=== PATIENT | female | born 1990 | race Two or more races ===

== ENCOUNTER 2023-02-27 08:00 | Outpatient (CLI) | payer OTHER, SELFPAY | END 2023-02-27 08:01 | disposition home or self-care (01) | LOC: NFLDREF 03-01 18:12 | PROVIDERS: Visit Provider Advanced Practice Midwife | DX: O20.9 Hemorrhage in early pregnancy, unspecified (principal) | CPT/HCPCS: 84702 ==

== ENCOUNTER 2023-03-06 08:28 | Outpatient (CLI) | payer OTHER, SELFPAY | END 2023-03-06 08:29 | disposition home or self-care (01) | LOC: NFLDREF 03-09 08:43 | PROVIDERS: Visit Provider Obstetrics & Gynecology | DX: O03.9 Complete or unspecified spontaneous abortion without complication (principal) | CPT/HCPCS: 84702 ==

== ENCOUNTER 2023-03-23 10:28 | Outpatient (CLI) | payer OTHER, SELFPAY | END 2023-03-23 10:29 | disposition home or self-care (01) | LOC: NFLDREF 15:24 | PROVIDERS: Visit Provider Obstetrics & Gynecology | DX: O20.9 Hemorrhage in early pregnancy, unspecified (principal) | CPT/HCPCS: 84702 ==

== ENCOUNTER 2024-07-26 06:55 | Outpatient (CLI) | payer OTHER, SELFPAY ==
--- NOTE | 2024-07-26 07:15 | CRLHL7_ITS ---
For Patients: As a result of the Cures Act, medical imaging exams and procedure reports are released immediately into your electronic medical record. You may view this report before your referring provider. If you have questions, please contact your health care provider. HISTORY: Dating and viability COMPARISON: None available of this gestation. TECHNIQUE: Transvaginal ultrasound examination of the early was performed. FINDINGS: A single intrauterine gestational sac is seen with a pole. The crown-rump length measurement of 3.5 cm gives an estimated gestational age of 10 weeks 3 days with an estimated date of delivery of 02/18/2025. This correlates well with the LMP of 05/18/2024 which gives a clinical age of 9 weeks 6 days. Regular cardiac activity is seen at 159 BPM. There is no sign of free fluid in the pelvis. The ovaries are normal in appearance. IMPRESSION: Single intrauterine gestation with estimated age of 10 weeks 3 days. Regular cardiac activity is seen. Dictated by Zheng Caraballo MD @ 07/26/2024 10:47:58 AM (Electronically Signed)
== END 2024-07-26 06:56 | disposition home or self-care (01) ==
PROVIDERS: Visit Provider Physician Assistant
DX: Z34.91 Encounter for supervision of normal pregnancy, unspecified, first trimester (principal); Z3A.10 10 weeks gestation of pregnancy
CPT/HCPCS: 76817; 86703; 86706; 86803; 86850; 86900; 86901; 87086; 87340; 87491; 87591; 87624; 88142

== ENCOUNTER 2024-07-26 08:15 | Outpatient (CLI) | payer OTHER, SELFPAY ==
[2024-07-26 12:51] LABS: Chlamydia DNA Amplified* NOT DETECTED (No Detected); GC DNA Amplified* NOT DETECTED (No Detected)
[2024-07-30 06:10] LABS: HPV Source Cervix; HPV, High Risk by TMA Not Detected
== END 2024-07-26 08:16 | disposition home or self-care (01) ==
PROVIDERS: Visit Provider Physician Assistant
DX: Z34.91 Encounter for supervision of normal pregnancy, unspecified, first trimester (principal); Z12.4 Encounter for screening for malignant neoplasm of cervix; Z3A.10 10 weeks gestation of pregnancy
CPT/HCPCS: 86592; 86703; 86704; 86706; 86762; 86787; 86803; 86850; 86900; 86901; 87086; 87340; 87491; 87591; 87624; 87625; 88141; 88142

== ENCOUNTER 2024-09-28 11:13 | Outpatient (CLI) | payer OTHER, SELFPAY | END 2024-09-28 11:14 | disposition home or self-care (01) | LOC: US 11:14 | PROVIDERS: Visit Provider Midwife | DX: O99.212 Obesity complicating pregnancy, second trimester (principal); Z68.43 Body mass index [BMI] 50.0-59.9, adult; Z3A.19 19 weeks gestation of pregnancy | CPT/HCPCS: 76811 ==

== ENCOUNTER 2024-10-26 12:37 | Outpatient (CLI) | payer OTHER, SELFPAY | END 2024-10-26 12:38 | disposition home or self-care (01) | LOC: US 12:37 | PROVIDERS: Visit Provider Obstetrics & Gynecology | DX: O99.212 Obesity complicating pregnancy, second trimester (principal); E66.01 Morbid (severe) obesity due to excess calories; Z68.43 Body mass index [BMI] 50.0-59.9, adult; Z3A.23 23 weeks gestation of pregnancy | CPT/HCPCS: 76816 ==

== ENCOUNTER 2024-11-28 09:20 | Outpatient (CLI) | payer OTHER, SELFPAY | END 2024-11-28 09:21 | disposition home or self-care (01) | LOC: US 09:21 | PROVIDERS: Visit Provider Obstetrics & Gynecology | DX: O99.213 Obesity complicating pregnancy, third trimester (principal); E66.01 Morbid (severe) obesity due to excess calories; Z68.43 Body mass index [BMI] 50.0-59.9, adult; Z3A.28 28 weeks gestation of pregnancy | CPT/HCPCS: 76816; 82565; 82570; 84156; 84450; 84460 ==

== ENCOUNTER 2024-11-28 10:31 | Outpatient (CLI) | payer OTHER, SELFPAY | END 2024-11-28 10:32 | disposition home or self-care (01) | PROVIDERS: Visit Provider Obstetrics & Gynecology | DX: Z34.83 Encounter for supervision of other normal pregnancy, third trimester (principal) | CPT/HCPCS: 82565; 82570; 84156; 84450; 84460; 86592 ==

== ENCOUNTER 2024-12-02 08:26 | Outpatient (CLI) | payer OTHER, SELFPAY | END 2024-12-02 08:27 | disposition home or self-care (01) | LOC: NFLDREF 12-05 03:39 | PROVIDERS: Visit Provider Obstetrics & Gynecology | DX: R89.9 Unspecified abnormal finding in specimens from other organs, systems and tissues (principal) | CPT/HCPCS: 82951; 82952 ==

== ENCOUNTER 2024-12-26 12:59 | Outpatient (CLI) | payer OTHER, SELFPAY ==
--- NOTE | 2024-12-26 13:00 | CRLHL7_ITS ---
For Patients: As a result of the Century Cures Act, medical imaging exams and procedure reports are released immediately into your electronic medical record. You may view this report before your referring provider. If you have questions, please contact your health care provider. OBSTETRICAL ULTRASOUND ??? BIOPHYSICAL PROFILE, 12/26/2024 INDICATION: Gestational diabetes mellitus, obesity. Biophysical profile and growth. CLINICAL HISTORY: ZAK by US: 02/18/2025 Gestational Age: 32 weeks 2 days COMPARISON: 11/28/2024, 10/26/2024, 09/28/2024 TECHNIQUE: Real-time rodriguez-scale imaging of the fetus was performed transabdominal. FINDINGS: Fetus: Single Cervix: Not visualized positioning: Vertex Amniotic fluid: 3.9 cm SDP BIOPHYSICAL PROFILE: Gross body movements: 2 tone: 2 Respiratory activity: 0 Amniotic fluid SDP: 2 Total score: 6 Placenta technique: Transabdominal Placenta position: Posterior heart rate: 138 bpm BIOMETRY: BPD: 7.7 cm, 31 weeks 0 days, 10.0% HC: 29.1 cm, 32 weeks 1 day, 11.7% AC: 29.0 cm, 33 weeks 0 days, 70.3% FL: 5.8 cm, 30 weeks 1 day, 3.0% FL/AC Ratio: 19.9% HC/AC ratio: 1.0 EFW: 1862 grams; 4 lbs. 2 oz. age by this ultrasound: 31 weeks 4 days ZAK by this ultrasound: 02/23/2025 Percentile by ZAK: 27.8% IMPRESSION: 1. Biophysical profile score is 6/8 with absent respiratory activity. 2. Sonographic gestational age is 31 weeks 4 days and sonographic due date is 02/23/2025. Sonographic age is 5 days behind the clinical age. 3. Estimated weight is 28th percentile. Abdominal circumference is 70th percentile. Femur length is 3rd percentile. VINEET PEDRAZA M.D. Diagnostic Radiologist [email or web address] Transcribed: 3:[address]/Dictated by: Vineet Pedraza MD @ 12/26/2024 2:50:00 PM (Electronically Signed)
== END 2024-12-26 13:00 | disposition home or self-care (01) ==
LOC: US 13:00
PROVIDERS: Visit Provider Obstetrics & Gynecology
DX: O24.419 Gestational diabetes mellitus in pregnancy, unspecified control (principal); O99.213 Obesity complicating pregnancy, third trimester; Z3A.32 32 weeks gestation of pregnancy
CPT/HCPCS: 76816; 76819; 82565; 82570; 84156; 84450; 84460; 84520

== ENCOUNTER 2024-12-27 14:39 | Outpatient (CLI) | payer OTHER, SELFPAY ==
--- NOTE | 2024-12-27 14:45 | CRLHL7_ITS ---
For Patients: As a result of the Century Cures Act, medical imaging exams and procedure reports are released immediately into your electronic medical record. You may view this report before your referring provider. If you have questions, please contact your health care provider. INDICATION: Follow-up biophysical profile on December 26 TECHNIQUE: Ultrasound OB pelvis transabdominal. Real-time rodriguez-scale imaging of the fetus was performed with color Doppler and spectral Doppler analysis of the umbilical artery without stress testing. COMPARISON: 12/26/2024 FINDINGS: Sonographic imaging demonstrates a single living intrauterine gestation. Fetus demonstrates a regular cardiac rate of 152 beats per minute. Fetus has a cephalic orientation. The placenta lies posterior. Amniotic fluid volume appears normal with a MVP of 3.9 cm. breathing movements, motion, and tone were all observed. IMPRESSION: Single viable intrauterine with a biophysical profile 04/28. Dictated by Fausto Alcantar MD @ 12/27/2024 3:34:43 PM (Electronically Signed)
== END 2024-12-27 14:40 | disposition home or self-care (01) ==
LOC: US 14:39
PROVIDERS: Visit Provider Obstetrics & Gynecology
DX: O24.419 Gestational diabetes mellitus in pregnancy, unspecified control (principal); Z3A.32 32 weeks gestation of pregnancy
CPT/HCPCS: 76819

== ENCOUNTER 2024-12-29 14:07 | Outpatient (CLI) | payer OTHER, SELFPAY ==
--- NOTE | 2024-12-29 14:45 | CRLHL7_ITS ---
For Patients: As a result of the Century Cures Act, medical imaging exams and procedure reports are released immediately into your electronic medical record. You may view this report before your referring provider. If you have questions, please contact your health care provider. INDICATION: Obesity complicating . Non-reactive NST. COMPARISON: OB ultrasound 12/27/2024. TECHNIQUE: Ultrasound OB pelvis biophysical profile. Real time rodriguez scale imaging of the fetus was performed without non-stress testing. FINDINGS: Sonographic imaging demonstrates a single living intrauterine gestation. The fetus has a regular cardiac rate of 149 beats per minute. The fetus has a cephalic orientation. The placenta lies posteriorly. Single deepest pocket measures 4.6 cm. breathing movements: 2/2 Gross body movements: 2/2 tone: 2/2 Amniotic fluid volume: 2/2 Total: 04/28 IMPRESSION: Normal biophysical profile score 8 out of 8. Dictated by Bryanna Wheeler MD @ 12/30/2024 2:53:10 AM (Electronically Signed)
== END 2024-12-29 14:08 | disposition home or self-care (01) ==
LOC: US 14:07
PROVIDERS: Visit Provider Obstetrics & Gynecology
DX: O99.210 Obesity complicating pregnancy, unspecified trimester (principal)
CPT/HCPCS: 76819; 82570; 84156

== ENCOUNTER 2025-01-02 09:03 | Outpatient (CLI) | payer OTHER, SELFPAY ==
--- NOTE | 2025-01-02 09:15 | CRLHL7_ITS ---
For Patients: As a result of the Century Cures Act, medical imaging exams and procedure reports are released immediately into your electronic medical record. You may view this report before your referring provider. If you have questions, please contact your health care provider. ULTRASOUND OB PELVIS BIOPHYSICAL PROFILE ZAK by LMP: 02/18/2025. GA: 33w, 2d. Single. COMPARISON: 12/29/2024, 12/27/2024, 12/26/2024. INDICATION: GDM. CERVIX: Not visualized. POSITIONING: Transverse. AMNIOTIC FLUID: 4.4 cm. BIOPHYSICAL PROFILE: Total score: 2. Gross body movements: 2. tone: 2. Respiratory activity: 2. Amniotic fluid: 8. (SDP N: Increase 2 x 1 cm) PLACENTA: Technique: Transabdominal. PLACENTA POSITION: Posterior. DOPPLER: heart rate: 150 bpm. IMPRESSION: Normal biophysical profile 04/28. Vineet Yoder M.D. Diagnostic Radiologist [email or web address] SP/Dictated by: Vineet Yoder MD @ 01/02/2025 5:07:00 PM (Electronically Signed)
== END 2025-01-02 09:04 | disposition home or self-care (01) ==
LOC: US 09:04
PROVIDERS: Visit Provider Obstetrics & Gynecology
DX: O24.419 Gestational diabetes mellitus in pregnancy, unspecified control (principal); Z3A.33 33 weeks gestation of pregnancy
CPT/HCPCS: 76819

== ENCOUNTER 2025-01-09 13:09 | Outpatient (CLI) | payer OTHER, SELFPAY ==
--- NOTE | 2025-01-09 13:00 | CRLHL7_ITS ---
For Patients: As a result of the Century Cures Act, medical imaging exams and procedure reports are released immediately into your electronic medical record. You may view this report before your referring provider. If you have questions, please contact your health care provider. OB ULTRASOUND ZAK by LMP or US: 02/18/2025. GA: 34 w, 2 d. Single. Comparison: Ultrasound 01/02/2025, 12/29/2024, 12/27/2024, 12/26/2024. INDICATION: Morbid obesity. TECHNIQUE: Real time grayscale imaging of the fetus was performed. Transabdominal. CERVIX: Not visualized. POSITIONING: Breech. AMNIOTIC FLUID: 4.5 cm. SDP (N: greater than 2 x 1 cm) BIOPHYSICAL PROFILE: 2: Gross body movements 2: tone 2: Respiratory activity 2: Amniotic fluid SDP (N: greater than 2 x 1 cm) 8/8: Total score PLACENTA: Technique: Transabdominal. PLACENTA POSITION: Posterior. DOPPLER: heart rate: 152 bpm. IMPRESSION: Normal biophysical profile score 8/8. Vineet Yoder M.D. Diagnostic Radiologist [email or web address] DAMIEN/mendy brooke/Dictated by: Vineet Yoder MD @ 01/09/2025 3:57:00 PM (Electronically Signed)
== END 2025-01-09 13:10 | disposition home or self-care (01) ==
LOC: US 13:09
PROVIDERS: Visit Provider Obstetrics & Gynecology
DX: O99.213 Obesity complicating pregnancy, third trimester (principal); E66.01 Morbid (severe) obesity due to excess calories; Z68.43 Body mass index [BMI] 50.0-59.9, adult; Z3A.34 34 weeks gestation of pregnancy
CPT/HCPCS: 76819